=== PATIENT | female | born 1985 | race African-American/Black ===

== ENCOUNTER 2017-07-31 07:59 | Emergency (ER) | payer SELFPAY ==
[~2017-07-31] VITALS: Ht 172.7 cm; Wt 99.5 kg
[2017-07-31] MEDS ORDERED: nyquil (08:28)
[2017-07-31 09:11] VITALS: BP 106/72
[2017-07-31] MEDS ORDERED: IBUPROFEN 600MG TABLET PO ONE (09:15)
[2017-07-31] MEDS ORDERED: OSELTAMIVIR 75MG CAPSULE PO ONE (10:00)
== END 2017-07-31 10:42 | disposition home or self-care (01) ==
LOC: ER 07:59
DX: J10.1 Influenza due to other identified influenza virus with other respiratory manifestations (principal)
CPT/HCPCS: 87804; 99284

== ENCOUNTER 2024-04-28 18:58 | Emergency (ER) | payer SELFPAY ==
[~2024-04-28] VITALS: Ht 172.7 cm; Wt 100.0 kg
[~2024-04-28 18:58] MED LIST: nyquil
[2024-04-28 19:11] VITALS: BP 133/88; PULSE 84; RESP 18; TEMP 97.9; O2SAT 100
== END 2024-04-28 22:40 | disposition left against medical advice (07) ==
LOC: ER 18:58
DX: R10.9 Unspecified abdominal pain (principal); Z53.21 Procedure and treatment not carried out due to patient leaving prior to being seen by health care provider